=== PATIENT | male | born 1950 | race Caucasian/White ===

== ENCOUNTER 2018-02-18 08:31 | Day surgery (SDC) | payer MEDICARE, MEDICAID ==
[2018-02-18] MEDS ORDERED: LIDOCAINE 2% MDV (20MG/ML) 20ML VIAL IV ONE (08:32)
[2018-02-18] MEDS ORDERED: LABETALOL HCL 5MG/ML, 20ML VIAL IVPB ONE (08:32)
[2018-02-18] MEDS ORDERED: PROPOFOL 10 MG/ML VIAL IV ONE (08:32)
--- NOTE | 2018-02-21 13:30 | Operative Note ---
DATE OF SURGERY: 02/18/2018 SURGEON: Giovany De La Garza MD OPERATION: COLONOSCOPY. INDICATIONS: This is a 68-year-old male with history of change in bowel habits who presented for colonoscopy. POSTOPERATIVE DIAGNOSES: 1. Five 6-8 mm sessile polyps in the ascending colon that were removed by cold snare. 2. Two 5 mm sessile polyps in the descending colon that were removed by cold snare. 3. A 3 mm sessile polyp in the descending colon that was also removed by cold biopsy forceps. 4. Left-sided colonic diverticulosis. 5. Otherwise normal colon and terminal ileum. ANESTHESIA: Sedation is per Anesthesia. Pulse oximetry was monitored throughout the procedure to maintain O2 saturation of 90% or greater. Supplemental oxygen was administered via nasal cannula. Cardiac and vital signs were monitored throughout the duration of the procedure, and they were stable. The procedure of colonoscopy and risks and alternatives of the procedure, including the risk of bleeding and perforation, among others, were explained to the patient who voiced understanding and agreed to have the procedure done. Physical examination was performed, and the patient was found stable for sedation. PROCEDURE: The patient was placed in the left lateral position. Sedation was initiated. A digital rectal exam was performed and showed some external hemorrhoids with no palpable rectal masses. An Olympus PCF-180AL colonoscope was then inserted into the rectum under direct visualization. It was advanced to the cecum without difficulty. The ileocecal valve and appendiceal orifice were identified and photographed. The colonic mucosa was carefully examined upon introduction of the colonoscope. There were scattered diverticula noted in the sigmoid and descending colon. In the ascending colon were five 5-8 mm sessile polyps that were removed by cold snare. The ileocecal valve was intubated and the terminal ileal mucosa was inspected for about 10 cm and it appeared normal. The colonoscope was then withdrawn while carefully examining the colonic mucosal surfaces. The rest of the ascending colon and transverse colon appeared normal. In the descending colon were two 5 mm sessile polyps that were noted and were removed by cold snare and an adjacent 3 mm sessile polyp that was removed by cold biopsy forceps. There were no other lesions were noted. In the rectum, retroflexion was performed and grade 1 internal hemorrhoids were noted. The colonoscope was then withdrawn and the procedure was terminated. The patient tolerated the procedure well without any immediate complications. He remained with stable vital signs and was transferred to the recovery room. RECOMMENDATIONS: 1. The patient should stay on a high-fiber diet. 2. The patient is to have a repeat colonoscopy in 3 or 5 years depending on the histology of the polyps. Thank you for allowing me to participate in the care of your patient. CC: MICHAEL Nash
== END 2018-02-18 10:32 | disposition home or self-care (01) ==
LOC: HOP 08:31
PROVIDERS: ATTEND Internal Medicine Gastroenterology
DX: R19.4 Change in bowel habit (principal); D12.2 Benign neoplasm of ascending colon; D12.4 Benign neoplasm of descending colon; K57.30 Diverticulosis of large intestine without perforation or abscess without bleeding; I10 Essential (primary) hypertension; E11.9 Type 2 diabetes mellitus without complications; E78.00 Pure hypercholesterolemia, unspecified

== ENCOUNTER 2018-02-23 11:02 | Emergency (ER) | payer MEDICARE, MEDICAID ==
[2018-02-23] MEDS ORDERED: ASPIRIN 81 MG CHEWABLE TABLET PO ONE (11:17)
--- NOTE | 2018-02-23 11:26 | Emergency Department Record ---
History of Present Illness - General Chief Complaint: Chest Pain Stated Complaint: CHEST PRESSURE Time Seen by Provider: 02/23/18 11:18 Source: RN notes reviewed Mode of Arrival: Ambulatory - History of Present Illness Initial Comments: patient was seen in the office for a check up and he told garcia Jose David he was having pressure in his chest for 2 day and she sent him to the ED for evaluation. Dr. Randall is his canteen operator. The chest pain is reproducible with palpation and he doesn't think this is pain that warrants nitoglycerin which he carries in his pocket. Patient under stress because his grandbaby went to [place]. Three previous NV and last one 2002, patient had two CVA's and last one 2012, DN, Hypertension , hyperchol, quit smoking in 2008 MD Complaint: Chest pain Onset/Timin -: Days(s) Onset: During rest Pain Location: Substernal, Left chest Pain Radiation: LUE Severity scale (1-10): 7 Quality: Aching, Heaviness Improves With: Nothing Worsens With: Nothing Anginal Symptoms: Dyspnea, Other Treatments Prior to Arrival: Aspirin Treatment Prior to Arrival Comment:: 81 mg. - Related Data Allergies Allergy/AdvReac Type Severity Reaction Status Date / Time Penicillins Allergy Severe FAINTING Unverified 02/23/18 09:06 bacitracin Allergy Intermediate RASH Unverified 02/23/18 09:06 Iodinated Contrast- Oral and Allergy Intermediate HIVES Unverified 02/23/18 09: 06 IV Dye iodine Allergy Intermediate HIVES Unverified 02/23/18 09:06 adhesive Allergy Mild RASH Unverified 02/23/18 09:06 acetaminophen [From Vicodin] AdvReac Mild VOMITING Unverified 02/23/18 09:06 hydrocodone bitartrate AdvReac Mild VOMITING Unverified 02/23/18 09:06 [From Vicodin] Travel Screening - Travel/Exposure Within Last 30 Days Have you traveled within the last 30 days?: No - Travel/Exposure Within Last Year Have you traveled outside the [place] in the last year?: No - Additonal Travel Details Have you been exposed to anyone with a communicable illness?: No - Travel Symptoms Symptom Screening: None Review of Systems Reviewed: No additional complaints except as noted below Constitutional: Reports: As per HPI. Denies: Chills, Fever, Malaise, Night sweats, Weakness, Weight change Eyes: Reports: As per HPI. Denies: Eye discharge, Eye pain, Photophobia, Vision change ENT: Reports: As per HPI. Denies: Congestion, Dental pain, Ear pain, Epistaxis , Hearing loss, Throat pain Respiratory: Reports: As per HPI. Denies: Cough, Dyspnea, Hemoptysis, Stridor, Wheezes Cardiovascular: Reports: As per HPI, Chest pain. Denies: Arrhythmia, Dyspnea on exertion, Edema, Murmurs, Orthopnea, Palpitations, Paroxysmal nocturnal dyspnea, Rheumatic Fever, Syncope Endocrine: Reports: As per HPI. Denies: Fatigue, Heat or cold intolerance, Polydipsia, Polyuria Gastrointestinal: Reports: As per HPI. Denies: Abdominal pain, Constipation, Diarrhea, Hematemesis, Hematochezia, Melena, Nausea, Vomiting Genitourinary: Reports: As per HPI. Denies: Dysuria, Frequency, Hematuria, Incontinence, Retention, Testicular pain, Testicular mass, Urgency Musculoskeletal: Reports: As per HPI. Denies: Arthralgia, Back pain, Gout, Joint swelling, Myalgia, Neck pain Skin: Reports: As per HPI. Denies: Bruising, Change in color, Change in hair/ nails, Lesions, Pruritus, Rash Neurological: Reports: As per HPI. Denies: Abnormal gait, Confusion, Headache, Numbness, Paresthesias, Seizure, Tingling, Tremors, Vertigo, Weakness Psychiatric: Reports: As per HPI. Denies: Anxiety, Auditory hallucinations, Depression, Homicidal thoughts, Suicidal thoughts, Visual hallucinations Hematological/Lymphatic: Reports: As per HPI. Denies: Anemia, Blood Clots, Easy bleeding, Easy bruising, Swollen glands Past Medical History - SOCIAL HISTORY Smoking Status: Former smoker Alcohol Use: None Drug Use: None - RESPIRATORY Hx Respiratory Disorders: Yes Hx Sleep Apnea: Yes Hx of CPAP: No - CARDIOVASCULAR Hx Cardio Disorders: Yes Hx Abnormal EKG: Yes Hx Cardiac Cath: Yes Hx Chest Pain: Yes Hx Deep Vein Thrombosis: Yes Hx Heart Attack: Yes (3x) Hx Hypertension: Yes Hx Coronary Stent: Yes Comment:: high cholesterol - NEURO Hx Neuro Disorders: Yes Hx CVA: Yes Hx of Migraines: Yes - GI Hx GI Disorders: Yes Hx Abdominal Pain: Yes Hx Reflux: Yes - Hx Genitourinary Disorders: No - ENDOCRINE Hx Endocrine Disorders: Yes Hx Diabetes: Yes - MUSCULOSKELETAL Hx Musculoskeletal Disorders: Yes Hx Arthritis: Yes - PSYCH Hx Psych Problems: No - HEMATOLOGY/ONCOLOGY Hx Hematology/Oncology Disorders: No Family Medical History Any Significant Family History?: No Hx Heart Disease: Father Hx Stroke: Mother Physical Exam - General General Appearance: Alert, Oriented x3, Cooperative, No acute distress - Head Head exam: Normal inspection - Eye Eye exam: Normal appearance, PERRL Pupils: Normal accommodation - ENT ENT exam: Normal exam, Mucous membranes moist, Normal external ear exam, Normal orophraynx, TM's normal bilaterally Ear exam: Normal external inspection. negative: External canal tenderness Nasal Exam: Normal inspection. negative: Discharge, Sinus tenderness Mouth exam: Normal external inspection, Tongue normal Teeth exam: Normal inspection. negative: Dental caries Throat exam: Normal inspection. negative: Tonsillar erythema, Tonsillar exudate - Neck Neck exam: Normal inspection, Full ROM. negative: Tenderness - Respiratory Respiratory exam: Normal lung sounds bilaterally. negative: Respiratory distress - Cardiovascular Cardiovascular Exam: Regular rate, Normal rhythm, Normal heart sounds, Other ( chest pain is reproducible on palpation of the chest) - GI/Abdominal GI/Abdominal exam: Soft, Normal bowel sounds. negative: Tenderness - Rectal Rectal exam: Deferred - exam: Deferred - Extremities Extremities exam: Normal inspection, Full ROM, Normal capillary refill. negative: Tenderness - Back Back exam: Reports: Normal inspection, Full ROM. Denies: Muscle spasm, Rash noted, Tenderness - Neurological Neurological exam: Alert, Normal gait, Oriented X3, Reflexes normal - Psychiatric Psychiatric exam: Normal affect, Normal mood - Skin Skin exam: Dry, Intact, Normal color, Warm Course Vital Signs 02/23/18 11:05 Temperature 98.4 F Pulse Rate 65 Respiratory 20 Rate Blood Pressure 147/101 Pulse Ox 97 - Reevaluation(s) Reevaluation #1: pain is pain free now. 02/23/18 12:51 Medical Decision Making - Data Complexity MDM Data: Labs Ordered and/or Reviewed (negative cardiac enzymes), X-Ray Ordered and/or Reviewed (chest no acute findings), EKG Ordered and/or Reviewed ( EKG similiar to previous EKG with signs of inferior NV , No acute changes seen today) - Lab Data Result diagrams: 02/23/18 11:10 02/23/18 11:10 Disposition Clinical Impression: Chest wall pain Chest pain Qualifiers: Chest pain type: unspecified Qualified Code(s): R07.9 - Chest pain, unspecified Disposition: Home, Self-Care Condition: (1) Good Instructions: Costochondritis (ED) Additional Instructions: follow up with Dr. Randall in 2 weeks return to ED if more chest pain tylenol 325 mg three times a day Forms: Patient Portal Access Time of Disposition: 12:52 Quality - Quality Measures Quality Measures: N/A - Blood Pressure Screening Does Patient Have Any of the Following: No, Active Dx of HTN Blood Pressure Classification: Hypertensive Reading Systolic Measurement: 147 Diastolic Measurement: 101 Screening for High Blood Pressure: Patient Exclusion, Hx of HTN [G9744]
[2018-02-23] MEDS: NITROGLYCERIN 0.4MG SL TABLET #25 BTL SL PRN ×3 (11:30→11:43)
[2018-02-23 11:33] LABS: BASO % 0.3 % (0-6); EOS % 2.5 % (0-6); GRAN % 61.4 % (47-80); HEMATOCRIT 48.1 % (42.0-52.0); HEMOGLOBIN 16.1 gm/dl (14.0-18.0); LYMPH % 28.5 % (16-45); MEAN CELL VOLUME 87.5 fl (81-97); MEAN CORPUSCULAR HEMOGLOBIN 29.3 pg (27-33); MEAN CORPUSCULAR HGB CONC 33.5 g/dl (32-36); MEAN PLATELET VOLUME 10.5 fl (7.4-10.4); MONO % 7.3 % (0-9); PLATELET COUNT 271 K/uL (130-400); RED CELL DISTRIBUTION WIDTH 15.1 % (11.5-14.5); WHITE BLOOD COUNT W/O DIFF 9.7 K/uL (4.2-12.2)
[2018-02-23 11:42] LABS: BLOOD UREA NITROGEN 7 mg/dL (8-23); EST GLOMERULAR FILTRATION RATE > 60 mL/min
[2018-02-23 11:45] LABS: GLUCOSE,RANDOM 105 mg/dL (74-109)
[2018-02-23 11:50] LABS: CKMB 1.8 ng/mL (<6.73)
--- NOTE | 2018-02-24 14:13 | RADIOLOGY REPORT ---
EXAM: PORTABLE CHEST HISTORY: MIDLINE CHEST PAIN FOR ONE AND A HALF DAYS. TECHNIQUE: AP semi-upright portable vies of the chest was obtained. Comparison: Two view chest 03/20/16. FINDINGS: The heart size is within normal limits. No definite acute infiltrate seen. No pleural effusion or pneumothorax evident. Hypertrophic spurring in the spine with a mild thoracic curve to the right. IMPRESSION: 1. MILD THORACIC CURVE TO THE RIGHT WITH HYPERTROPHIC SPURRING IN THE SPINE. 2. NO ACUTE INFILTRATE IDENTIFIED. JOB NUMBER: [id number] MTDD
== END 2018-02-23 13:01 | disposition home or self-care (01) ==
LOC: ER 11:02
DX: R07.89 Other chest pain (principal); I10 Essential (primary) hypertension; E11.9 Type 2 diabetes mellitus without complications; I25.2 Old myocardial infarction; Z87.891 Personal history of nicotine dependence; Z86.73 Personal history of transient ischemic attack (TIA), and cerebral infarction without residual deficits; Z79.84 Long term (current) use of oral hypoglycemic drugs; Z86.718 Personal history of other venous thrombosis and embolism
CPT/HCPCS: 71045; 80048; 82553; 84484; 85025; 85730; 93005; 93010; 99284

== ENCOUNTER 2018-08-04 10:14 | Emergency (ER) | payer MEDICARE, MEDICAID ==
[2018-08-04] MEDS ORDERED: ASPIRIN 81 MG CHEWABLE TABLET PO ONE (10:48)
[2018-08-04 11:18] LABS: BASO % 0.3 % (0-6); GRAN % 72.4 % (47-80); HEMATOCRIT 46.8 % (42.0-52.0); HEMOGLOBIN 15.7 gm/dl (14.0-18.0); LYMPH % 18.3 % (16-45); MEAN CELL VOLUME 85.9 fl (81-97); MEAN CORPUSCULAR HEMOGLOBIN 28.8 pg (27-33); MEAN CORPUSCULAR HGB CONC 33.5 g/dl (32-36); MEAN PLATELET VOLUME 10.6 fl (7.4-10.4); PLATELET COUNT 239 K/uL (130-400); RED BLOOD COUNT 5.45 M/uL (4.40-5.70); RED CELL DISTRIBUTION WIDTH 15.2 % (11.5-14.5); WHITE BLOOD COUNT W/O DIFF 11.7 K/uL (4.2-12.2)
[2018-08-04 11:20] LABS: BLOOD UREA NITROGEN 16 mg/dL (8-23); CREATININE 0.9 mg/dL (0.7-1.2); EST GLOMERULAR FILTRATION RATE > 60 mL/min
[2018-08-04 11:21] LABS: TOTAL PROTEIN 7.6 g/dL (6.6-8.7)
[2018-08-04 11:23] LABS: GLUCOSE,RANDOM 120 mg/dL (74-109)
[2018-08-04 11:25] LABS: ALB/GLOB RATIO 1.7 (1.1-1.8); ALBUMIN 4.8 g/dL (4.0-5.0); ALKALINE PHOSPHATASE 94 U/L (40-129); ALT/SGPT 18 U/L (<41); AST/SGOT 20 U/L (10.0-50.0); CREATINE PHOSPHOKINASE 79 U/L (39-308)
[2018-08-04 11:29] LABS: CKMB 1.5 ng/mL (<6.73)
--- NOTE | 2018-08-04 11:29 | Emergency Department Record ---
History of Present Illness - General Chief complaint: Vomiting Stated complaint: VOMITING/ELEVATED BLOOD PRESSURE Time Seen by Provider: 08/04/18 10:42 Source: Patient Mode of Arrival: Wheelchair Limitations: No limitations - History of Present Illness Initial comments: pt was in rehab when he developed n/v/ diaphoresis. he had similar episodes w his heart problems. he feels better now but feels weak. pt has no cp/ap and nausea is better MD complaint: Nausea, Vomiting Description of Vomiting: Watery Improves with: None Worsens with: None Associated Symptoms: Nausea/vomiting, Weakness - Related Data Allergies Allergy/AdvReac Type Severity Reaction Status Date / Time Penicillins Allergy Severe FAINTING Verified 08/04/18 10:25 bacitracin Allergy Intermediate RASH Verified 08/04/18 10:25 Iodinated Contrast- Oral and Allergy Intermediate HIVES Verified 08/04/18 10:25 IV Dye iodine Allergy Intermediate HIVES Verified 08/04/18 10:25 adhesive Allergy Mild RASH Verified 08/04/18 10:25 hydrocodone bitartrate AdvReac Mild VOMITING Verified 08/04/18 10:25 [From Vicodin] Travel Screening - Travel/Exposure Within Last 30 Days Have you traveled within the last 30 days?: No Review of Systems Reviewed: No additional complaints except as noted below Constitutional: Reports: As per HPI, Weakness. Denies: Chills, Fever, Malaise, Night sweats, Weight change Eyes: Reports: As per HPI. Denies: Eye discharge, Eye pain, Photophobia, Vision change ENT: Reports: As per HPI. Denies: Congestion, Dental pain, Ear pain, Epistaxis , Hearing loss, Throat pain Respiratory: Reports: As per HPI. Denies: Cough, Dyspnea, Hemoptysis, Stridor, Wheezes Cardiovascular: Reports: As per HPI. Denies: Arrhythmia, Chest pain, Dyspnea on exertion, Edema, Murmurs, Orthopnea, Palpitations, Paroxysmal nocturnal dyspnea, Rheumatic Fever, Syncope Endocrine: Reports: As per HPI. Denies: Fatigue, Heat or cold intolerance, Polydipsia, Polyuria Gastrointestinal: Reports: As per HPI, Nausea, Vomiting. Denies: Abdominal pain , Constipation, Diarrhea, Hematemesis, Hematochezia, Melena Genitourinary: Reports: As per HPI. Denies: Dysuria, Frequency, Hematuria, Incontinence, Retention, Testicular pain, Testicular mass, Urgency Musculoskeletal: Reports: As per HPI. Denies: Arthralgia, Back pain, Gout, Joint swelling, Myalgia, Neck pain Skin: Reports: As per HPI. Denies: Bruising, Change in color, Change in hair/ nails, Lesions, Pruritus, Rash Neurological: Reports: As per HPI. Denies: Abnormal gait, Confusion, Headache, Numbness, Paresthesias, Seizure, Tingling, Tremors, Vertigo, Weakness Psychiatric: Reports: As per HPI. Denies: Anxiety, Auditory hallucinations, Depression, Homicidal thoughts, Suicidal thoughts, Visual hallucinations Hematological/Lymphatic: Reports: As per HPI. Denies: Anemia, Blood Clots, Easy bleeding, Easy bruising, Swollen glands Past Medical History - SOCIAL HISTORY Smoking Status: Former smoker Alcohol Use: None Drug Use: None - RESPIRATORY Hx Respiratory Disorders: Yes Hx Sleep Apnea: Yes Hx of CPAP: No - CARDIOVASCULAR Hx Cardio Disorders: Yes Hx Abnormal EKG: Yes Hx Cardiac Cath: Yes Hx Chest Pain: Yes Hx Heart Attack: Yes (3x) Hx Hypertension: Yes Hx Coronary Stent: Yes Comment:: high cholesterol - NEURO Hx Neuro Disorders: Yes Hx CVA: Yes (x 2) Hx of Migraines: Yes - GI Hx GI Disorders: Yes Hx Abdominal Pain: Yes Hx Reflux: Yes - Hx Genitourinary Disorders: No - ENDOCRINE Hx Endocrine Disorders: Yes Hx Diabetes: Yes - MUSCULOSKELETAL Hx Musculoskeletal Disorders: Yes Hx Arthritis: Yes - PSYCH Hx Psych Problems: No - HEMATOLOGY/ONCOLOGY Hx Hematology/Oncology Disorders: No Family Medical History Any Significant Family History?: Yes Hx Heart Disease: Father Hx Stroke: Mother Physical Exam - General General Appearance: Alert, Oriented x3, Cooperative, Mild distress - Head Head exam: Normal inspection - Eye Eye exam: Normal appearance, PERRL, EOMI Pupils: Normal accommodation - ENT ENT exam: Normal exam, Mucous membranes moist, Normal external ear exam, Normal orophraynx Ear exam: Normal external inspection. negative: External canal tenderness Nasal Exam: Normal inspection. negative: Discharge, Sinus tenderness Mouth exam: Normal external inspection, Tongue normal Teeth exam: Normal inspection. negative: Dental caries Throat exam: Normal inspection. negative: Tonsillar erythema, Tonsillar exudate - Neck Neck exam: Normal inspection, Full ROM. negative: Tenderness - Respiratory Respiratory exam: Normal lung sounds bilaterally. negative: Respiratory distress - Cardiovascular Cardiovascular Exam: Regular rate, Normal rhythm, Normal heart sounds - GI/Abdominal GI/Abdominal exam: Soft, Normal bowel sounds. negative: Tenderness - Rectal Rectal exam: Deferred - exam: Deferred - Extremities Extremities exam: Normal inspection, Full ROM, Normal capillary refill. negative: Tenderness - Back Back exam: Reports: Normal inspection, Full ROM. Denies: Muscle spasm, Rash noted, Tenderness - Neurological Neurological exam: Alert, CN II-XII intact, Normal gait, Oriented X3 - Psychiatric Psychiatric exam: Normal affect, Normal mood - Skin Skin exam: Dry, Intact, Normal color, Warm Course Vital Signs 08/04/18 08/04/18 10:18 11:11 Temperature 98.0 F Pulse Rate 71 Pulse Rate [ 68 [employer] Maker ] Respiratory 20 18 Rate Blood Pressure 180/101 Blood Pressure 152/96 [Right Arm] Pulse Ox 98 99 Medical Decision Making - Lab Data Result diagrams: 08/04/18 10:25 08/04/18 10:25 Lab Results 08/04/18 Range/Units 10:25 WBC 11.7 (4.2-12.2) K/uL RBC 5.45 (4.40-5.70) M/uL Hgb 15.7 (14.0-18.0) gm/dl Hct 46.8 (42.0-52.0) % MCV 85.9 (81-97) fl MCH 28.8 (27-33) pg MCHC 33.5 (32-36) g/dl RDW 15.2 H (11.5-14.5) % Plt Count 239 (130-400) K/uL MPV 10.6 H (7.4-10.4) fl Gran % 72.4 (47-80) % Lymphocytes % 18.3 (16-45) % Monocytes % 7.0 (0-9) % Eosinophils % 2.0 (0-6) % Basophils % 0.3 (0-6) % Disposition Disposition: Discharge Clinical Impression: Vomiting Qualifiers: Vomiting type: unspecified Vomiting Intractability: non-intractable Nausea presence: with nausea Qualified Code(s): R11.2 - Nausea with vomiting, unspecified Disposition: Home, Self-Care Condition: (1) Good Instructions: Acute Nausea and Vomiting (ED) Additional Instructions: follow up with family doctor and with mobile equipment mechanic tomorrow. return sooner if worse. Forms: Patient Portal Access Quality - Quality Measures Quality Measures: N/A - Blood Pressure Screening Does Patient Have Any of the Following: Active Dx of HTN Blood Pressure Classification: Hypertensive Reading Systolic Measurement: 180 Diastolic Measurement: 101 Screening for High Blood Pressure: Patient Exclusion, Hx of HTN [G9744]
[2018-08-04 14:48] LABS: CREATINE PHOSPHOKINASE 68 U/L (39-308)
[2018-08-04 14:50] LABS: CKMB 1.3 ng/mL (<6.73)
--- NOTE | 2018-08-06 20:20 | RADIOLOGY REPORT ---
EXAM: CHEST 2 VIEWS HISTORY: DIFFICULTY IN BREATHING. TECHNIQUE: Frontal and lateral views of the chest were performed. COMPARISON: 07/21/2018. FINDINGS: Heart size is normal. Lung maxwell are clear. Osseous structures are normal. IMPRESSION: NEGATIVE CHEST EXAMINATION. JOB NUMBER: [id number] MTDD
== END 2018-08-04 16:13 | disposition home or self-care (01) ==
LOC: ER 10:14
DX: R11.2 Nausea with vomiting, unspecified (principal); R61 Generalized hyperhidrosis; R53.1 Weakness; I10 Essential (primary) hypertension; E11.9 Type 2 diabetes mellitus without complications; I25.2 Old myocardial infarction; Z87.891 Personal history of nicotine dependence
CPT/HCPCS: 71046; 80053; 82550; 82553; 84484; 85025; 93005; 93010; 99284

== ENCOUNTER 2018-11-25 14:52 | Emergency (ER) | payer MEDICAID, MEDICARE ==
--- NOTE | 2018-11-25 15:06 | Emergency Department Record ---
History of Present Illness - General Chief Complaint: Back Pain/Injury Stated Complaint: BACK AND LEG PAIN Time Seen by Provider: 11/25/18 14:54 Source: Patient Mode of Arrival: Ambulatory Limitations: No limitations - History of Present Illness Initial Comments: 68 yo male presents with five days of lumbar pain with radiation to the leg. He woke up with the pain. He states it hurts to move, twist, bending, sit up, or lay on the right side. The pain radiates down the leg to the calf/foot. No weakness. He has some chronic unchanged foot tingling from his diabetes. He has lumbar pain that radiated down the left leg a year ago. Pain down the right leg is new. No history of back surgery. No urinary changes. No incontinence. No hematuria. No history of renal stones. No abdominal pain. The pain occurs with movement primarily. PCP is the [facility] Nanci Salvador MD Complaint: Back pain, Other -: Days(s) (5) Place: Home Radiation: Left leg Severity: Moderate Quality: Aching, Sharp Consistency: Intermittent Improves With: None Worsens With: Movement, Walking Context: Bending, Turning/twisting Associated Symptoms: Denies other symptoms - Related Data Previous Rx's Medication Instructions Recorded Cyclobenzaprine HCl [Flexeril] 10 mg PO TID #18 tablet 11/25/18 Hydrocodone/Acetaminophen [[place] 1 tab PO Q6H PRN #12 tab 11/25/18 5mg/325mg] Allergies Allergy/AdvReac Type Severity Reaction Status Date / Time Penicillins Allergy Severe FAINTING Verified 11/25/18 15:04 bacitracin Allergy Intermediate RASH Verified 11/25/18 15:04 Iodinated Contrast- Oral and Allergy Intermediate HIVES Verified 11/25/18 15:04 IV Dye iodine Allergy Intermediate HIVES Verified 11/25/18 15:04 adhesive Allergy Mild RASH Verified 11/25/18 15:04 hydrocodone bitartrate AdvReac Mild VOMITING Verified 11/25/18 15:04 [From Vicodin] Review of Systems Constitutional: Denies: Chills, Fever, Malaise, Weakness Eyes: Denies: Eye discharge ENT: Denies: Congestion, Throat pain Respiratory: Denies: Cough, Dyspnea Cardiovascular: Denies: Chest pain, Palpitations, Syncope Endocrine: Denies: Fatigue Gastrointestinal: Denies: Abdominal pain, Diarrhea, Nausea, Vomiting Genitourinary: Denies: Dysuria, Frequency, Hematuria, Incontinence, Retention, Testicular pain, Testicular mass, Urgency Musculoskeletal: Reports: As per HPI, Back pain Skin: Denies: Bruising, Change in color, Rash Neurological: Denies: Abnormal gait, Headache, Numbness, Tingling, Weakness Psychiatric: Denies: Anxiety Hematological/Lymphatic: Denies: Blood Clots, Easy bleeding, Easy bruising Past Medical History - SOCIAL HISTORY Smoking Status: Former smoker - RESPIRATORY Hx Respiratory Disorders: Yes Hx Sleep Apnea: Yes Hx of CPAP: No - CARDIOVASCULAR Hx Cardio Disorders: Yes Hx Abnormal EKG: Yes Hx Cardiac Cath: Yes Hx Chest Pain: Yes Hx Heart Attack: Yes (3x) Hx Hypertension: Yes Hx Coronary Stent: Yes Comment:: high cholesterol - NEURO Hx Neuro Disorders: Yes Hx CVA: Yes (x 2) Hx of Migraines: Yes - GI Hx GI Disorders: Yes Hx Abdominal Pain: Yes Hx Reflux: Yes - Hx Genitourinary Disorders: No - ENDOCRINE Hx Endocrine Disorders: Yes Hx Diabetes: Yes - MUSCULOSKELETAL Hx Musculoskeletal Disorders: Yes Hx Arthritis: Yes - PSYCH Hx Psych Problems: No - HEMATOLOGY/ONCOLOGY Hx Hematology/Oncology Disorders: No Family Medical History Hx Heart Disease: Father Hx Stroke: Mother Physical Exam - General General Appearance: Alert, Oriented x3, Cooperative, No acute distress Limitations: No limitations - Head Head exam: Atraumatic, Normal inspection - Eye Eye exam: Normal appearance. negative: Conjunctival injection - ENT ENT exam: Normal exam Ear exam: Normal external inspection Nasal Exam: Normal inspection Mouth exam: Normal external inspection - Neck Neck exam: Normal inspection - Respiratory Respiratory exam: Normal lung sounds bilaterally. negative: Respiratory distress - Cardiovascular Cardiovascular Exam: Regular rate, Normal rhythm, Normal heart sounds - GI/Abdominal GI/Abdominal exam: Soft. negative: Diminished bowel sounds, Distended, Guarding , Pulsatile mass, Rebound, Tenderness - Rectal Rectal exam: Deferred - exam: Deferred - Extremities Extremities exam: Normal inspection, Full ROM. negative: Joint swelling, Pedal edema, Tenderness - Back Back exam: Reports: Normal inspection, CVA tenderness (R), Full ROM, Muscle spasm, Paraspinal tenderness, Tenderness, Vertebral tenderness. Denies: Rash noted Image of Body Front/Back: 1 - tenderness in the right glutteal area, no rash, reproducible pain location - Neurological Neurological exam: Alert, Motor sensory deficit, Oriented X3, Reflexes normal, Other (No foot drop. No quads, or calf weakness. No objective sensation changes). negative: Altered - Psychiatric Psychiatric exam: Normal affect, Normal mood - Skin Skin exam: Dry, Intact, Normal color, Warm. negative: Erythema, Mottled Course - Reevaluation(s) Reevaluation #1: 11/25/18 16:[address] scan was reviewed. No acute process. We discussed the results, the need to follow up with his PCP, and possible need for outpatient testing with MRI if pain continues. 11/25/18 16:24 The patient denies allergy to [place]. Disposition Disposition: Discharge Clinical Impression: Lumbar pain Disposition: Home, Self-Care Condition: (1) Good Instructions: Low Back Strain (ED) Additional Instructions: Call your family doctor for a recheck if the pain does not improve Return or be seen if worse, weak, numb You may need to be evaluated by your family doctor for physical therapy or MRI if not improving. Prescriptions: Cyclobenzaprine HCl [Flexeril] 10 mg PO TID #18 tablet Hydrocodone/Acetaminophen [[place] 5mg/325mg] 1 tab PO Q6H PRN #12 tab PRN Reason: Pain - General Forms: Patient Portal Access Time of Disposition: 16:24 Quality - Quality Measures Quality Measures: N/A - Blood Pressure Screening Does Patient Have Any of the Following: Active Dx of HTN Blood Pressure Classification: Hypertensive Reading Systolic Measurement: 166 Diastolic Measurement: 111 Screening for High Blood Pressure: Patient Exclusion, Hx of HTN [G9744]
[2018-11-25] MEDS ORDERED: CYCLOBENZAPRINE 10MG TABLET PO ONE (15:18)
[2018-11-25] MEDS ORDERED: HYDROCODONE/APAP 5/325MG TABLET PO ONE (15:18)
[2018-11-25] MEDS ORDERED: ACETAMINOPHEN 500 MG TABLET PO ONE (15:21)
--- NOTE | 2018-11-27 18:09 | CT SCAN REPORT ---
EXAM: CT SCAN ABDOMEN/PELVIS WO CONTRAST HISTORY: RIGHT FLANK PAIN. TECHNIQUE: Noncontrast CT abdomen and pelvis. COMPARISON: None. FINDINGS: Calcified granuloma in the lateral left lower lobe. Coronary artery calcifications noted. Small volume of pericardial fluid, nonspecific. Unremarkable noncontrast CT appearance of the liver, gallbladder, adrenal glands , spleen, and pancreas. No hydronephrosis. No intrarenal or ureteral calculi are detected. Urinary bladder appears unremarkable. Mild colonic diverticulosis without evidence of acute diverticulitis. No focal colonic thickening or inflammatory changes. Normal appendix. Stomach and small bowel are nondilated. No free air or free fluid. No mesenteric or retroperitoneal adenopathy is appreciated. Diffuse calcification of the aortoiliac arterial axis without aneurysmal dilation. Left common femoral artery stent. No definite acute osseous findings. Scattered degenerative changes involving the thoracolumbar spine and bilateral hips. Longitudinally oriented focus of microscopic fat within the right psoas muscle measuring approximately 16 x 11 x 32 mm. The right psoas muscle is slightly smaller than the left and may represent sequela of previous muscular injury vs. a small intramuscular lipoma. IMPRESSION: 1. NO ACUTE FINDINGS IN THE ABDOMEN OR PELVIS. SPECIFICALLY, NO EVIDENCE OF OBSTRUCTIVE UROPATHY OR UROLITHIASIS. 2. MULTIPLE INCIDENTAL AND CHRONIC FINDINGS, DESCRIBED IN THE BODY OF THE REPORT. JOB NUMBER: [id number] [facility], [place]
== END 2018-11-25 16:33 | disposition home or self-care (01) ==
LOC: ER 14:52
DX: M54.16 Radiculopathy, lumbar region (principal); E11.9 Type 2 diabetes mellitus without complications; I25.2 Old myocardial infarction; F17.210 Nicotine dependence, cigarettes, uncomplicated; Z86.73 Personal history of transient ischemic attack (TIA), and cerebral infarction without residual deficits
CPT/HCPCS: 74176; 99283

== ENCOUNTER 2019-03-26 18:44 | Emergency (ER) | payer MEDICARE, MEDICAID ==
--- NOTE | 2019-03-26 18:57 | Emergency Department Record ---
History of Present Illness - General Chief Complaint: Recheck - Other Stated Complaint: HIGH PT Time Seen by Provider: 03/26/19 18:49 Source: Patient Mode of arrival: Ambulatory Limitations: No limitations - History of Present Illness Initial Comments: The patient is here due to a one week hx of mild chest tightness with intermittent GARTH. He states the symptoms come and go and are not associated with exertion, cough, fever, or pain. The pain is also not pleuritic. The patient states he has a hx of CAD and multiple cardiac stents. The patient did see his PCP 2 days ago for this same issue and had a D-dimer sent that was mildly elevated per his PCP. In actuality it is normal based on his age adjusted D- dimer. The patient has had no leg pain, swelling, or recent travel. MD Complaint: Other Onset/Timin -: Week(s) - Related Data Allergies Allergy/AdvReac Type Severity Reaction Status Date / Time Penicillins Allergy Severe FAINTING Verified 03/26/19 19:00 bacitracin Allergy Intermediate RASH Verified 03/26/19 19:00 Iodinated Contrast- Oral and Allergy Intermediate HIVES Verified 03/26/19 19:00 IV Dye iodine Allergy Intermediate HIVES Verified 03/26/19 19:00 adhesive Allergy Mild RASH Verified 03/26/19 19:00 hydrocodone bitartrate AdvReac Mild VOMITING Verified 03/26/19 19:00 [From Vicodin] Review of Systems Constitutional: Denies: Chills, Fever Eyes: Denies: Eye discharge ENT: Denies: Congestion Respiratory: Reports: Dyspnea. Denies: Cough Cardiovascular: Reports: Chest pain. Denies: Dyspnea on exertion Endocrine: Denies: Fatigue Gastrointestinal: Denies: Diarrhea Genitourinary: Denies: Frequency Musculoskeletal: Denies: Back pain Skin: Denies: Bruising Past Medical History - SOCIAL HISTORY Smoking Status: Former smoker - RESPIRATORY Hx Respiratory Disorders: Yes Hx Sleep Apnea: Yes Hx of CPAP: No - CARDIOVASCULAR Hx Cardio Disorders: Yes Hx Abnormal EKG: Yes Hx Cardiac Cath: Yes Hx Chest Pain: Yes Hx Heart Attack: Yes (3x) Hx Hypertension: Yes Hx Coronary Stent: Yes Comment:: high cholesterol - NEURO Hx Neuro Disorders: Yes Hx CVA: Yes (x 2) Hx of Migraines: Yes - GI Hx GI Disorders: Yes Hx Abdominal Pain: Yes Hx Reflux: Yes - Hx Genitourinary Disorders: No - ENDOCRINE Hx Endocrine Disorders: Yes Hx Diabetes: Yes - MUSCULOSKELETAL Hx Musculoskeletal Disorders: Yes Hx Arthritis: Yes - PSYCH Hx Psych Problems: No - HEMATOLOGY/ONCOLOGY Hx Hematology/Oncology Disorders: No Family Medical History Hx Heart Disease: Father Hx Stroke: Mother Physical Exam - General General Appearance: Alert, Oriented x3, Cooperative, No acute distress - Head Head exam: Atraumatic, Normocephalic, Normal inspection - Eye Eye exam: Normal appearance, PERRL - ENT Throat exam: Normal inspection. negative: Tonsillar erythema, Tonsillar exudate - Neck Neck exam: Normal inspection, Full ROM. negative: Lymphadenopathy, Meningismus, Tenderness - Respiratory Respiratory exam: Normal lung sounds bilaterally. negative: Respiratory distress - Cardiovascular Cardiovascular Exam: Regular rate, Normal rhythm, Normal heart sounds - GI/Abdominal GI/Abdominal exam: Soft, Normal bowel sounds. negative: Tenderness - Extremities Extremities exam: Normal inspection, Full ROM, Normal capillary refill. negative: Calf tenderness, Pedal edema, Tenderness - Back Back exam: Denies: Normal inspection - Neurological Neurological exam: Alert, Normal gait. negative: Abnormal gait, Motor sensory deficit Course - Reevaluation(s) Reevaluation #1: The patient is doing very well at this time. He is resting comfortably in no distress. I did discuss the need for a Cardiology consultation due to the fact the patient feels the pain is similar to the pain he had prior to his last stent. He has no GARTH, SOB, or pleuritic pain at this time but his D-dimer is still elevated. He will need a VQ scan which we cannot perform here so we will give a dose of Lovenox and [place] [facility] [place] I did discuss the case with [place]. Andersen [place] [facility] does [place] the patient in [place]. 03/26/19 20:05 Medical Decision Making - Data Complexity MDM Data: Labs Ordered and/or Reviewed, X-Ray Ordered and/or Reviewed, EKG Ordered and/or Reviewed - Lab Data Result diagrams: 03/26/19 19:05 03/26/19 19:05 - EKG Data -: EKG Interpreted by Me EKG: No Acute Changes (NSR at 68, neg ST changes. Nonspecific IVCD.) - Radiology Data Radiology results: Report reviewed (CXR: Neg.) Disposition Disposition: Transfer Clinical Impression: Unstable angina Disposition: Acute Care Hospital Transfer [place] [facility] [place] For Transfer: [facility] Accepting Physician: Nathaly Time Discussed w/Accepting Physician: 20:09 Condition: (2) Stable Forms: Patient Portal Access Time of Disposition: 20:09 Quality - Quality Measures Quality Measures: N/A - Blood Pressure Screening View Details: Yes Does Patient Have Any of the Following: Active Dx of HTN Blood Pressure Classification: Hypertensive Reading Systolic Measurement: 183 Diastolic Measurement: 105 Screening for High Blood Pressure: Patient Exclusion, Hx of HTN [G9744]
[2019-03-26 19:12] LABS: ABSOLUTE NEUTROPHIL COUNT 5.52; BASO % 0.3 % (0-6); EOS % 2.5 % (0-6); GRAN % 60.8 % (47-80); HEMATOCRIT 41.8 % (42.0-52.0); HEMOGLOBIN 13.8 gm/dl (14.0-18.0); MEAN CELL VOLUME 92.9 fl (81-97); MEAN CORPUSCULAR HEMOGLOBIN 30.6 pg (27-33); MEAN PLATELET VOLUME 10.9 fl (7.4-10.4); MONO % 7.4 % (0-9); PLATELET COUNT 197 K/uL (130-400); RED CELL DISTRIBUTION WIDTH 14.6 % (11.5-14.5); WHITE BLOOD COUNT W/O DIFF 9.1 K/uL (4.2-12.2)
[2019-03-26 19:24] LABS: BLOOD UREA NITROGEN 13 mg/dL (8-23); CREATININE 1.1 mg/dL (0.7-1.2); EST GLOMERULAR FILTRATION RATE > 60 mL/min
[2019-03-26 19:27] LABS: GLUCOSE,RANDOM 91 mg/dL (74-109); INR 1.1; PARTIAL THROMBOPLASTIN TIME 27.7 SECONDS (24.5-39.1)
[2019-03-26 19:30] LABS: CREATINE PHOSPHOKINASE 101 U/L (39-308)
[2019-03-26 19:32] LABS: CKMB 1.9 ng/mL (<6.73)
[2019-03-26] MEDS ORDERED: ASPIRIN 325 MG TABLET PO ONE (19:43)
[2019-03-26] MEDS ORDERED: ENOXAPARIN 100 MG/ML SYR SQ ONE (20:03)
--- NOTE | 2019-03-28 09:36 | RADIOLOGY REPORT ---
EXAM: CHEST, TWO VIEWS HISTORY: UPPER CHEST TIGHTNESS. TECHNIQUE: Two views of the chest were obtained. Comparison: 03/14/19. FINDINGS: The cardiomediastinal silhouette is unremarkable. The lungs and pleural spaces are clear. IMPRESSION: NO ACUTE CARDIOPULMONARY ABNORMALITY. JOB NUMBER: [id number] MTDD
== END 2019-03-26 21:03 | disposition short-term general hospital (02) ==
LOC: ER 18:44
DX: I20.0 Unstable angina (principal); I10 Essential (primary) hypertension; I25.2 Old myocardial infarction; I25.10 Atherosclerotic heart disease of native coronary artery without angina pectoris; E11.9 Type 2 diabetes mellitus without complications; Z95.5 Presence of coronary angioplasty implant and graft; Z87.891 Personal history of nicotine dependence
CPT/HCPCS: 71046; 80048; 82550; 82553; 83880; 84484; 85025; 85379; 85610; 85730; 93005; 93010; 96372; 99285; J1650